=== PATIENT | female | born 1985 | race Caucasian/White ===

== ENCOUNTER 2024-07-11 00:57 | Emergency (ER) | payer OTHER, SELFPAY ==
[2024-07-11 00:59] VITALS: BP 201/107
--- NOTE | 2024-07-11 01:17 | ED.GENMED ---
History of Present Illness
General
Chief Complaint: Nose Bleed
Source: patient
Exam Limitations: none
Time Seen by Provider: 07/11/24 01:08
History of Present Illness
History of Present Illness:
This is a 38 year old female that comes in with c/o nose bleed. States that at 12:30am she was in bed and she awoke with drainage coming from her nose. States that she wiped her nose and didn't think anything of this. States that she then started to
pour out and she went to the [facility]. States that she put Tampons up her nose and when she took them out 15 min later a large clot came out and it poured out form the right nose. Denies any fever, chills, chest pain, SOB, abd pain, nausea, vomiting,
diarrhea, headache, dizziness, urinary burning.
Past History
Past History
ED Past Medical History: Arrthythmia (WPW s/p ablation), CVA (NO residual), HTN, IDDM (Insulin pump ) and Other (PITTMAN, Polycystic ovarian syndrome, Ehler's danlow, SI joint problems)
ED Past Surgical History: Cardiac (ablation for WPW, ), Gynecological (Cyst left fallopian tube) and Other (3 eye surgerys)
Social History
Tobacco: Non-smoker
Alcohol: None
Personal:
Living: with family
Review of Systems
Review of Systems
All Other Systems: ROS reviewed and negative except as documented in HPI and ROS
Constitutional: Reports no symptoms; Denies fever or chills
EENT: Reports other (Nose bleed)
Respiratory: Reports no symptoms; Denies cough or trouble breathing
Cardiac: Reports no symptoms; Denies chest pain
ABD/GI: Reports no symptoms; Denies abdominal pain, nausea, vomiting or diarrhea
: Reports no symptoms; Denies dysuria, frequency or urgency
Musculoskeletal: Reports no symptoms
Skin: Reports no symptoms
Neurological: Reports no symptoms; Denies dizzy or headache
Psychiatric: Reports no symptoms
Phy Exam
General Physical Exam
General Presentation: mild distress
General age: appears stated age
General Skin: warm and dry
General Habitus: obese
General Mental: alert
General Hydration: appears well hydrated
ENT Exam
ENT Exam: TM's normal, pharynx normal and neck supple
Eye Exam
Eye Exam: EOMI
Cardiovascular Exam
Cardiovascular Exam: regular rate/rhythm and normal peripheral pulses
Pulmonary Exam
Pulmonary Exam: lungs clear, no respiratory distress, no rales, chest non tender, no crackles, no rhonchi, no wheezing and no cough
Musculoskeletal Exam
Musculoskeletal Exam: full ROM
Skin Exam
Skin Exam: normal color, warm/dry, no rash and no petechia
Psychiatric Exam
Psychiatric Exam: normal mood/affect
Course
Orders/Labs/Results
Orders:
Orders
07/11/24 01:18
Tranexamic Acid 1,000 mg .ROUTE .STK-MED ONE
Vital Signs
Initial and Last Documented VS:
Initial Vital Signs
Temp Pulse Resp BP Pulse Ox
98.5 F 92 18 201/107 98
07/11/24 00:59 07/11/24 00:59 07/11/24 00:59 07/11/24 00:59 07/11/24 00:59
Last Documented Vital Signs
Temp Pulse Resp BP Pulse Ox
98.5 F 92 18 142/88 98
07/11/24 00:59 07/11/24 00:59 07/11/24 00:59 07/11/24 01:27 07/11/24 00:59
MDM/Problems Addressed
Differential Diagnosis Includes:
Nose bleed
MDM/Problems Addressed:
This is a 38 year old female that comes in with c/o nose. State that at 12:30 am she awoke and felt like her nose was running. States that at first she didn;t think anything of this. Then it started to pour out.
Will clamp nose first and if the bleeding does not stop will use Tranexaminc acid.
Clamp has been removed and at this time the bleeding has stopped. Patient is resting in bed and will recheck.
Into see patient. Patient has not had any further bleeding. Give Ice water at this time. Will recheck at 2:30am.
Patient states that she is feeling better. Will let patient go home.
Chronic conditions affecting care: HTN
Acute Exacerbation and/or Progression of Chronic Illness: HTN
*Pulse Oximetry
Patient hypoxic: no
*EKG
Interpreted by ED Provider?: NA
Rate: EKG- N/A
*Piano Mover Interpretation
Rate: Piano Mover- N/A
*Critical Care Note
Total Time (30-74mins, 75-104mins- exclusive of procedures): Not Applicable
ED Attending Note
-
Portions of this chart may have been created with voice recognition software.� Occasional wrong word or��sound alike� substitutions may have occurred due to the inherent limitations of voice recognition software.
Discharge Plan
Departure
Patient Disposition: Home (Routine Discharge)
Date of Disposition: 07/11/24
Time of Disposition: 02:29
Patient with high blood pressure during this ER visit?: Yes
Condition: Good
Covid-19: Not Applicable
Discharge Problem:
Epistaxis
Instructions: Nosebleeds (DC), BLOOD PRESSURE
Prescriptions:
No Action
Ambien
25 mg PO HS PRN (Reason: sleep)
amlodipine
10 mg PO DAILY
aspirin
81 mg PO DAILY
lorazepam
0.5 mg PO DAILY PRN (Reason: anxiety)
propranolol
80 mg PO BID
metformin 500 mg Tablet
500 mg PO BID
Metamucil
1 cap PO DAILY
Novolog PenFill U-100 Insulin
1 dose SC DAILY
Rx Instructions:
Patient uses a insulin pump, dose varies
1 tab PO DAILY
Vitamin D3
1 tab PO DAILY
magnesium
1 tab PO DAILY
Referrals:
Heather Riddle MD [Family Provider] - As needed
Activity Restrictions/Additional Instructions:
As discussed, your nose bleed has stopped on its own. You may use Saline nasal spray to help keep the nasal passages moist or take a little Vaseline on a Q-tip and place in along the nasal septum be for bed. Follow up with the family doctor as
needed. IF YOU HAVE ANY OTHER CONCERNS PLEASE RETURN TO THE EMERGENCY ROOM.
Interventions
Interventions:
*Risk Screen - Suicide Last Done: 07/11/24 00:59
*General Assessment Last Done: 07/11/24 00:59
*Neglect/Abuse Screening Last Done: 07/11/24 00:59
ED- Fall Risk Assessment Last Done: 07/11/24 01:28
*ED COVID-19 Vaccine History Last Done: 07/11/24 01:28
ED-EENT Assessment Last Done: 07/11/24 01:30
Discharge Date and Time
Print Language: TURKMEN
[2024-07-11 01:27] VITALS: BP 142/88
[2024-07-11 02:38] VITALS: BP 141/65
== END 2024-07-11 02:38 | disposition home or self-care (01) ==
LOC: EMR 00:57
PROVIDERS: EMERGENCY PHYSICIAN Student in an Organized Health Care Education/Training Program; FAMILY PHYSICIAN Family Medicine
DX: R04.0 Epistaxis (principal); I10 Essential (primary) hypertension; Z86.73 Personal history of transient ischemic attack (TIA), and cerebral infarction without residual deficits; E11.9 Type 2 diabetes mellitus without complications; Z79.4 Long term (current) use of insulin; Z96.41 Presence of insulin pump (external) (internal)
CPT/HCPCS: 99282

== ENCOUNTER 2024-07-14 22:06 | Emergency (ER) | payer OTHER, SELFPAY ==
[2024-07-14 22:11] VITALS: BP 160/98
--- NOTE | 2024-07-14 23:23 | ED.GENMED ---
History of Present Illness
General
Chief Complaint: Nose Bleed
Source: patient
Exam Limitations: none
Time Seen by Provider: 07/14/24 22:26
History of Present Illness
History of Present Illness:
This is a 38 year old female that comes in with c/o nose bleed. Patient was seen here on night last week for the same think. State that around 8:30pm she took a shower, got out and went to the BR. States that she stood up and her nose
started to bleed. States that they used a clamp for a half hour but it was still bleeding. Then she put tampons in her nose but it was running down her throat. States that she now has a headache with some dizziness. States that she did vomited at
home. Denies any fever, chills, chest pain, SOB, abd pain, nausea, diarrhea, urinary burning.
Past History
Past History
ED Past Medical History: Arrthythmia (WPW s/p ablation), CVA (NO residual), HTN, IDDM (Insulin pump ) and Other (PITTMAN, Polycystic ovarian syndrome, Ehler's danlow, SI joint problems)
ED Past Surgical History: Cardiac (ablation for WPW, ), Gynecological (Cyst left fallopian tube) and Other (3 eye surgerys)
Social History
Tobacco: Non-smoker
Alcohol: None
Personal:
Living: with family
Review of Systems
Review of Systems
All Other Systems: ROS reviewed and negative except as documented in HPI and ROS
Constitutional: Reports no symptoms; Denies fever or chills
EENT: Reports other (NOse bleed)
Respiratory: Reports no symptoms; Denies cough or trouble breathing
Cardiac: Reports no symptoms; Denies chest pain
ABD/GI: Reports vomiting; Denies abdominal pain, nausea or diarrhea
: Reports no symptoms; Denies dysuria, frequency or urgency
Musculoskeletal: Reports no symptoms
Skin: Reports no symptoms
Neurological: Reports dizzy and headache
Psychiatric: Reports no symptoms
Phy Exam
General Physical Exam
General Presentation: mild distress
General age: appears stated age
General Skin: warm and dry
General Habitus: obese
General Mental: alert
General Hydration: appears well hydrated
ENT Exam
ENT Exam: TM's normal, pharynx normal, neck supple and other (Right nasal septal bleeding noted. )
Eye Exam
Eye Exam: EOMI
Cardiovascular Exam
Cardiovascular Exam: regular rate/rhythm, no edema, no murmur and normal peripheral pulses
Pulmonary Exam
Pulmonary Exam: lungs clear, no respiratory distress, no rales, chest non tender, no crackles, no rhonchi, no wheezing and no cough
Musculoskeletal Exam
Musculoskeletal Exam: full ROM
Skin Exam
Skin Exam: normal color, warm/dry, no rash and no petechia
Psychiatric Exam
Psychiatric Exam: normal mood/affect
Course
Orders/Labs/Results
Orders:
Orders
07/14/24 23:14
Tranexamic Acid 1,000 mg .ROUTE .STK-MED ONE
Vital Signs
Initial and Last Documented VS:
Initial Vital Signs
Pulse Resp BP Pulse Ox
108 18 160/98 98
07/14/24 22:11 07/14/24 22:11 07/14/24 22:11 07/14/24 22:11
Last Documented Vital Signs
Pulse Resp BP Pulse Ox
108 18 160/98 98
07/14/24 22:11 07/14/24 22:11 07/14/24 22:11 07/14/24 22:11
Procedures
Nosebleed
Drug treatment: Tranexamic Acid
Treatment: other (Surgafoam)
Post treatment bleeding: none- good control
MDM/Problems Addressed
Differential Diagnosis Includes:
Nose bleed
MDM/Problems Addressed:
This is a 38 year old female that comes in with c/o nose bleed. Patient was seen her on night and the bleeding stopped by itself.
Will have patient blow her nose and a cotton ball with TXA was placed in the right nares. Will recheck.
Surgifoam place earlier and patient is no longer bleeding. Will have patient follow up with the ENT specialist. Patient to return with any concerns.
Chronic conditions affecting care:
NA
Acute Exacerbation and/or Progression of Chronic Illness:
NA
*Pulse Oximetry
Patient hypoxic: no
*EKG
Interpreted by ED Provider?: NA
Rate: EKG- N/A
*Fleet Sales Associate Interpretation
Rate: Fleet Sales Associate- N/A
*Critical Care Note
Total Time (30-74mins, 75-104mins- exclusive of procedures): Not Applicable
ED Attending Note
-
Portions of this chart may have been created with voice recognition software.� Occasional wrong word or��sound alike� substitutions may have occurred due to the inherent limitations of voice recognition software.
Discharge Plan
Departure
Patient Disposition: Home (Routine Discharge)
Date of Disposition: 07/15/24
Time of Disposition: 01:23
Patient with high blood pressure during this ER visit?: Yes
Condition: Good
Covid-19: Not Applicable
Discharge Problem:
Nasal bleeding
Instructions: Nosebleeds (DC), BLOOD PRESSURE
Prescriptions:
No Action
Ambien
25 mg PO HS PRN (Reason: sleep)
amlodipine
10 mg PO DAILY
aspirin
81 mg PO DAILY
lorazepam
0.5 mg PO DAILY PRN (Reason: anxiety)
propranolol
80 mg PO BID
metformin 500 mg Tablet
500 mg PO BID
Metamucil
1 cap PO DAILY
Novolog PenFill U-100 Insulin
1 dose SC DAILY
Rx Instructions:
Patient uses a insulin pump, dose varies
1 tab PO DAILY
Vitamin D3
1 tab PO DAILY
magnesium
1 tab PO DAILY
Referrals:
Heather Riddle MD [Family Provider] -
Lila Marrufo MD [Active] - Follow up in 2-3 days
Activity Restrictions/Additional Instructions:
As discussed, you have Surgifoam packing in the right nares. This will fall out on its own. Please do not blow your nose. Follow up with the ENT specialist for further evaluation. IF YOU HAVE ANY OTHER CONCERNS PLEASE RETURN TO THE EMERGENCY ROOM.
Interventions
Interventions:
*Risk Screen - Suicide Last Done: 07/14/24 22:12
*Neglect/Abuse Screening Last Done: 07/14/24 22:12
ED- Fall Risk Assessment Last Done: 07/14/24 22:30
ED-EENT Assessment Last Done: 07/14/24 22:30
Discharge Date and Time
Print Language: MAURITIAN
[2024-07-15 01:30] VITALS: BP 145/94
== END 2024-07-15 01:50 | disposition home or self-care (01) ==
LOC: EMR 22:06
PROVIDERS: EMERGENCY PHYSICIAN Student in an Organized Health Care Education/Training Program; FAMILY PHYSICIAN Family Medicine
DX: R04.0 Epistaxis (principal); R42 Dizziness and giddiness; R51.9 Headache, unspecified; R11.10 Vomiting, unspecified; E11.9 Type 2 diabetes mellitus without complications; G90.A Postural orthostatic tachycardia syndrome [POTS]; Z86.73 Personal history of transient ischemic attack (TIA), and cerebral infarction without residual deficits; Z96.41 Presence of insulin pump (external) (internal); Z79.4 Long term (current) use of insulin; Z79.82 Long term (current) use of aspirin; Z88.6 Allergy status to analgesic agent
CPT/HCPCS: 99282; 30901

== ENCOUNTER → 2025-03-09 13:42 | Outpatient (REF) | payer OTHER, SELFPAY | LOC: HWRCS 13:42 | PROVIDERS: ATTENDING PHYSICIAN Family Medicine | DX: I49.8 Other specified cardiac arrhythmias (principal); R55 Syncope and collapse | CPT/HCPCS: 93306 ==